=== PATIENT | male | born 1945 | race Caucasian/White ===

== ENCOUNTER 2018-04-20 11:19 | Emergency (ER) | payer BC, OTHER ==
[2018-04-20 11:36] VITALS: TEMP 97.7; BMI 19.3
--- NOTE | 2018-04-20 14:00 | PDOC ---
History of Present Illness - General Chief Complaint: Blood Sugar Problem Stated Complaint: PAIN/WEAKNESS Time Seen by Provider: 04/20/18 13:22 History Source: Patient, Family Exam Limitations: Language Barrier - History of Present Illness Initial Comments: 04/20/18 13:49 Pt. is a 73 y.o. sinhala speaking (family interpreted) M newly emigrated from [place] w/o documented PMHx. presents to the ED for chronic back pain, hyperglycemia(334) last month at [facility], and 40-50 pound unintentional weight loss over the last year. Pt. endorses decreased appetite but did not quantify how long he has been having these symptoms. Per family history as Pt. when he was last seen about 8 months ago was completely independent and able to take care of himself without difficulty. Now the Pt. has increased weakness such that his relative, who lives with him had to carry him up the stairs to the second floor of their house. Pt. endorses generalized weakness, decreased appetite, chronic back pain with radiation to LLE following sciatica distribution, polyuria, b/l numbness with LLE being worse than right and hair falling out in clumps (per family) Pt. denies any chest pain, shortness of breath, palpitations, melena, hematochezia, changes in bowel habits, dysuria, hematuria, abdominal pain, fevers, chills, sudden changes in vision, hearing or headache. FOBT, EKG, CBC, CMP, UA and 2L NS ordered- to evaluate for diabetes and malignancy. 04/20/18 14:18 04/20/18 14:44 04/20/18 16:59 Timing/Duration: constant Severity: moderate Associated Symptoms: reports: loss of appetite, weakness. denies: chest pain, cough, fever/chills, headaches, nausea/vomiting, seizure, shortness of breath Aspirin Received prior to arrival: Yes: no aspirin today Beta Yelena Contraindications(Core Measure): Yes: Not Prescribed Past History - Travel Traveled outside of the country in the last 30 days: Yes If so, where?: [place] Close contact w/someone who was outside of country & ill: No - Past Medical History Allergies/Adverse Reactions: Allergies Allergy/AdvReac Type Severity Reaction Status Date / Time No Known Allergies Allergy Verified 04/20/18 11:23 Home Medications: Ambulatory Orders NK [No Known Home Medication] 04/20/18 Asthma: No COPD: No CHF: No Diabetes: Yes (Not taking any medications ) Disorders: No Liver Disease: No - Surgical History Abdominal Surgery: No Appendectomy: No Cardiac Surgery: No Cholecystectomy: No Gastric Stapling: No GI Surgery: No Lung Surgery: No Neurologic Surgery: No Orthopedic Surgery: No - Immunization History Immunization Up to Date: No - Suicide/Smoking/Psychosocial Hx Smoking History: Never smoked Have you smoked in the past 12 months: No Information on smoking cessation initiated: No Hx Alcohol Use: No Drug/Substance Use Hx: No Review of Systems - Review of Systems Able to Perform ROS?: Yes Is the patient limited Stateless proficient: Yes Constitutional: Yes: Loss of Appetite, Weakness, Unintentional Wgt. Loss, Unexplained wgt Loss. No: Chills, Fever, Weight Stable HEENTM: Yes: Blurred Vision, Other (hair falling out in clumps ). No: Eye Pain , Recent change in vision, Tinnitus, Throat Swelling, Difficulty Swallowing Respiratory: No: Cough, Orthopnea, Shortness of Breath, SOB with Exertion, SOB at Rest, Wheezing, Productive cough Cardiac (ROS): No: Chest Pain, Irregular Heart Rate, Lightheadedness, Palpitations, Chest Tightness ABD/GI: Yes: Poor Appetite, Poor Fluid Intake. No: Constipated, Diarrhea, Difficulty Swallowing, Nausea, Rectal Bleeding, Vomiting, Indigestion : Yes: Frequency, Urgency. No: Burning, Dysuria, Discharge, Flank Pain, Hematuria, Incontinence, Pain Musculoskeletal: Yes: Back Pain. No: Joint Pain, Joint Swelling, Muscle Pain, Muscle Weakness, Joint Stiffness Integumentary: No: Symptoms Reported Neurological: Yes: Numbness, Tingling, Weakness. No: Headache, Seizure, Unsteady Gait, Ataxia, Dizziness Endocrine: Yes: Unexplained Weight Loss Hematologic/Lymphatic: No: Symptoms Reported *Physical Exam - Vital Signs Last Vital Signs Temp Pulse Resp BP Pulse Ox 97.7 F 121 H 16 164/94 96 04/20/18 11:26 04/20/18 11:26 04/20/18 11:26 04/20/18 11:26 04/20/18 11:26 - Physical Exam General Appearance: Yes: Appropriately Dressed, Cachetic, Thin HEENT: positive: MATHEW, Normal Voice, Symmetrical, Pharynx Normal, Hearing Grossly Normal, Other (hair falling out ) Neck: positive: Normal Thyroid, Supple, Carotid bruit. negative: Tender, Lymphadenopathy (R), Lymphadenopathy (L) Respiratory/Chest: positive: Lungs Clear, Normal Breath Sounds. negative: Chest Tender, Respiratory Distress, Accessory Muscle Use, Crackles, Rales, Wheezing Cardiovascular: positive: Regular Rhythm, Regular Rate, S1, S2. negative: Edema , JVD, Murmur Vascular Pulses: Dorsalis-Pedis (R): 2+, Doralis-Pedis (L): 2+ Gastrointestinal/Abdominal: positive: Normal Bowel Sounds, Flat, Soft. negative : Protuberent, Distended, Guarding, Rebound, Tenderness Male Genitalia: positive: normal prostate. negative: discharge Rectal Exam: positive: heme negative stool, normal exam, NL Prostate, normal rectal tone. negative: hemorrhoids Musculoskeletal: negative: CVA Tenderness, Vertebral Tenderness Extremity: positive: Normal Capillary Refill, Normal Inspection, Normal Range of Motion, Pelvis Stable. negative: Tender, Coldness, Cyanosis, Pedal Edema, Swelling, Calf Tenderness, Erythema Integumentary: positive: Normal Color, Dry, Warm Neurologic: positive: Fully Oriented, Normal Mood/Affect, Normal Response, Motor Strength 5/5, Respond to painful stimul, Responsive Moderate Sedation - Procedure Monitoring Vital Signs: Procedure Monitoring Vital Signs Temperature 97.7 F 04/20/18 11:26 Pulse Rate 121 H 04/20/18 11:26 Respiratory Rate 16 04/20/18 11:26 Blood Pressure 164/94 04/20/18 11:26 O2 Sat by Pulse Oximetry (%) 96 04/20/18 11:26 ED Treatment Course - LABORATORY CBC & Chemistry Diagram: 04/20/18 14:00 04/20/18 14:00 *DC/Admit/Observation/Transfer Diagnosis at time of Disposition: Hyperglycemia due to type 2 diabetes mellitus Qualifiers: Diabetes mellitus termite control service representative insulin use: unspecified termite control service representative insulin use status Qualified Code(s): E11.65 - Type 2 diabetes mellitus with hyperglycemia - Discharge Dispostion Condition at time of disposition: Stable Decision to Admit order: No - Referrals Referrals: Wesley Crews MD [Staff Physician] - 1 week - Patient Instructions Printed Discharge Instructions: DI for Hyperglycemia -- Adult Additional Instructions: You came in for significant weight loss and high blood sugar. We did imaging of your chest, abdomen and pelvis. We have provided you with a copy of the imaging results. We did a blood test for your blood sugar called HgBA1c: 12.1% Please follow up with your Primary Care Provider within 1 week to discuss your results. We have provided you a PCP if you do not have one. Please return to the ED if you are having any concerning symptoms including chest pain, loss of consciousness fever or chills. - Post Discharge Activity
--- NOTE | 2018-04-20 14:09 | PDOC ---
Attending Attestation - Resident Resident Name: Bal Allen - ED Attending Attestation I have performed the following: I have examined & evaluated the patient, The case was reviewed & discussed with the resident, I agree w/resident's findings & plan, Exceptions are as noted - HPI HPI: 73 yo M no known past medical history presents with 40-50 lb weight loss, frequent urination. He immigrated from [facility], just arrived in [facility]. Brought in by family. Patient is vague historian. Denies fever, abd pain, cp, N/V/D. He states his appetite has been decreased. He also notes that he has been losing clumps of his hair recently. - Physicial Exam PE: GENERAL: Awake, alert, and fully oriented, in no acute distress. Cachectic. HEAD: No signs of trauma. +Patchy allopecia. EYES: PERRLA, EOMI, sclera anicteric, conjunctiva clear ENT: Auricles normal inspection, hearing grossly normal, nares patent, oropharynx clear without exudates. Dry mucosa NECK: Normal ROM, supple, no lymphadenopathy, JVD, or masses LUNGS: Breath sounds equal, clear to auscultation bilaterally. No wheezes, and no crackles HEART: Regular rate and rhythm, normal S1 and S2, no murmurs, rubs or gallops ABDOMEN: Soft, nontender, normoactive bowel sounds. No guarding, no rebound. No masses EXTREMITIES: Normal range of motion, no edema. No clubbing or cyanosis. No cords, erythema, or tenderness NEUROLOGICAL: Cranial nerves II through XII grossly intact. Normal speech, normal gait. Motor and sensation intact SKIN: Warm, Dry, normal turgor, no rashes or lesions noted. - Medical Decision Making Pt found to have BGM over range. IV fluids started while awaiting lab results. Based on patient's cachexia, this may be either due to wasting due to diabetes, but malignancy is also possible. Will hydrate, give insulin, and obtain CT chest , abdomen, and pelvis.
[2018-04-20] MEDS ORDERED: SODIUM CHLORIDE 1,000 ML IV STA (14:13)
[2018-04-20] MEDS ORDERED: SODIUM CHLORIDE 1,000 ML IV SCH (14:15)
[2018-04-20 14:32] LABS: BASO % 0.6 % (0-2.0); EOS % 0.1 % (0-4.5); HEMOGLOBIN 14.9 GM/dL (11.7-16.9); LYMPH % 9.9 % (8-40); MCH 30.4 pg (25.7-33.7); MCHC 33.2 g/dl (32.0-35.9); MEAN CELL VOLUME 91.8 fl (80-96); MEAN PLT VOLUME 8.9 fl (7.5-11.1); NEUT % 82.4 % (42.8-82.8); PLATELET COUNT 233 K/MM3 (134-434); RDW 13.7 % (11.9-15.9); WHITE BLOOD COUNT 8.8 K/mm3 (4.0-10.0)
[2018-04-20 14:47] LABS: ALBUMIN 3.9 g/dl (3.4-5.0); ALK PHOS 153 U/L (45-117); ANION GAP 8 MMOL/L (8-16); BILIRUBIN,TOTAL 0.5 mg/dL (0.2-1); BLOOD UREA NITROGEN 21 mg/dL (7-18); CALCIUM 9.4 mg/dL (8.5-10.1); CHLORIDE 93 mmol/L (98-107); CO2 29 mmol/L (21-32); CREATININE 0.9 mg/dL (0.55-1.3); POTASSIUM 5.1 mmol/L (3.5-5.1); SGOT/AST 19 U/L (15-37); SGPT/ALT 36 U/L (13-61); SODIUM 130 mmol/L (136-145); TOT PROT 7.8 g/dl (6.4-8.2)
[2018-04-20 14:48] LABS: URINE APPEARANCE CLEAR; URINE BILIRUBIN NEGATIVE (<2.0 mg/dL); URINE COLOR STRAW; URINE GLUCOSE (UA) 3+ (NEGATIVE); URINE KETONE TRACE (NEGATIVE); URINE LEUK ESTERASE NEGATIVE (NEGATIVE); URINE NITRITE NEGATIVE (NEGATIVE); URINE PROTEIN NEGATIVE (NEGATIVE); URINE UROBILINOGEN NEGATIVE mg/dL (0.2-1.0)
[2018-04-20 14:50] LABS: GLUCOSE,RANDOM 490 mg/dL (74-106)
[2018-04-20] MEDS ORDERED: INSULIN REGULAR HUMAN 100 UNITS/ML *VIAL SQ ONE (14:59)
[2018-04-20] MEDS ORDERED: INSULIN REGULAR HUMAN 100 UNITS/ML *VIAL ONE (15:18)
[2018-04-20 17:48] VITALS: BP 159/92; PULSE 93
--- NOTE | 2018-04-21 10:04 | EKG ---
Test Reason : Blood Pressure : / mmHG Vent. Rate : 111 BPM Atrial Rate : 111 BPM P-R Int : 164 ms QRS Dur : 078 ms QT Int : 340 ms P-R-T Axes : 075 071 073 degrees QTc Int : 462 ms SINUS TACHYCARDIA OTHERWISE NORMAL ECG WHEN COMPARED WITH ECG OF 24-MAY-2010 12:02, NO SIGNIFICANT CHANGE WAS FOUND Confirmed by Trevin Olguin MD ([id number]) on 04/21/2018 10:03:39 AM Referred By: Confirmed By:Trevin Olguin MD
== END 2018-04-20 19:02 | disposition home or self-care (01) ==
LOC: JER 11:19
PROC: 3E013VG Introduction of Insulin into Subcutaneous Tissue, Percutaneous Approach (ICD-10-PCS; principal; 2018-04-20)
PROC: 3E0337Z Introduction of Electrolytic and Water Balance Substance into Peripheral Vein, Percutaneous Approach (ICD-10-PCS; 2018-04-20)
DX: E11.65 Type 2 diabetes mellitus with hyperglycemia (principal)
CPT/HCPCS: 36415; 71260-TC; 74177-TC; 80053; 81003; 82272; 82962; 83036; 85025; 93005; 93010; 99282-25; J7030

== ENCOUNTER 2022-07-01 11:06 | Observation (INO) | payer BC ==
[2022-07-01 11:35] VITALS: TEMP 98.2; BMI 24.1
[2022-07-01] MEDS ORDERED: SODIUM CHLORIDE 0.9% 1000 ML INFUS.BAG IV ONE (11:41)
[2022-07-01] MEDS ORDERED: ONDANSETRON 4 MG/2 ML VIAL IVPUSH ONE (11:42)
[2022-07-01] MEDS ORDERED: ONDANSETRON 4 MG/2 ML VIAL ONE (11:45)
[2022-07-01 12:52] LABS: INR 0.97 (0.83-1.09); PROTHROMBIN TIME (PATIENT) 11.3 SEC (9.7-13.0)
[2022-07-01 12:54] LABS: ACTIVATED PTT 30.5 SECONDS (25.2-36.5)
[2022-07-01 13:08] LABS: BASO % 0.8 % (0-2.0); EOS % 1.5 % (0-4.5); HEMATOCRIT 35.8 % (35.4-49); HEMOGLOBIN 12.2 GM/dL (11.7-16.9); LYMPH % 26.9 % (8-40); MCH 30.9 pg (25.7-33.7); MCHC 34.1 g/dl (32.0-35.9); MEAN CELL VOLUME 90.5 fl (80-96); MEAN PLT VOLUME 8.8 fl (7.5-11.1); MONO % 8.3 % (3.8-10.2); NEUT % 62.5 % (42.8-82.8); PLATELET COUNT 269 10^3/uL (134-434); RBC 3.96 M/mm3 (4.00-5.60); RDW 13.6 % (11.9-15.9)
[2022-07-01 13:12] LABS: ALBUMIN 3.4 g/dl (3.4-5.0); BLOOD UREA NITROGEN 32.1 mg/dL (7-18); CALCIUM 9.3 mg/dL (8.5-10.1)
[2022-07-01 13:15] LABS: CREATININE 1.4 mg/dL (0.55-1.3)
[2022-07-01 13:17] LABS: BILIRUBIN,TOTAL 0.2 mg/dL (0.2-1); TOT PROT 7.2 g/dl (6.4-8.2)
[2022-07-01 14:05] LABS: URINE APPEARANCE CLEAR; URINE BILIRUBIN NEGATIVE (NEGATIVE); URINE COLOR YELLOW; URINE GLUCOSE (UA) NEGATIVE (NEGATIVE); URINE KETONE TRACE (NEGATIVE); URINE LEUK ESTERASE NEGATIVE (NEGATIVE); URINE NITRITE NEGATIVE (NEGATIVE); URINE PROTEIN NEGATIVE (NEGATIVE); URINE UROBILINOGEN 0.2 mg/dL (0.2-1.0)
[2022-07-01 18:14] VITALS: BP 141/66; PULSE 80; RESP 20
== END 2022-07-01 17:31 | disposition home or self-care (01) ==
LOC: JER 11:06 → JERBED 14:56
PROVIDERS: ADMIT Internal Medicine; ATTEND Internal Medicine
PROC: 3E033GC Introduction of Other Therapeutic Substance into Peripheral Vein, Percutaneous Approach (ICD-10-PCS; principal; 2022-07-01)
PROC: 3E0337Z Introduction of Electrolytic and Water Balance Substance into Peripheral Vein, Percutaneous Approach (ICD-10-PCS; 2022-07-01)
DX: E86.0 Dehydration (principal); N17.9 Acute kidney failure, unspecified; R00.0 Tachycardia, unspecified; E11.9 Type 2 diabetes mellitus without complications; F03.90 Unspecified dementia, unspecified severity, without behavioral disturbance, psychotic disturbance, mood disturbance, and anxiety; R55 Syncope and collapse; Z91.190 Patient's noncompliance with other medical treatment and regimen due to financial hardship
CPT/HCPCS: 0241U-QW; 36415; 80053; 81003; 82962; 83735; 84484; 85025; 85610; 85730; 87086; 93005; 93010; 96361; 96374; 99285-25; G0378